=== PATIENT | female | born 1985 | race American Indian/Alaskan Native ===

== ENCOUNTER 2024-07-12 14:19 | Emergency (ER) | payer MEDICAID, OTHER | END 2024-07-12 17:11 | disposition home or self-care (01) | LOC: JP.ED 14:19 | DX: L02.03 Carbuncle of face (principal); I10 Essential (primary) hypertension; F17.210 Nicotine dependence, cigarettes, uncomplicated; Z86.16 Personal history of COVID-19 | CPT/HCPCS: 87070; 87186; 87205; 99283 ==